=== PATIENT | female | born 1945 | race Hispanic/Latino ===

== ENCOUNTER 2017-12-24 08:38 | Emergency (ER) | payer MEDICARE ==
--- NOTE | 2017-12-24 10:43 | RAD ---
FOUR VIEWS OF THE RIGHT KNEE: DATE: 12/24/17. COMPARISON: None. HISTORY: Total knee arthroplasty in October, pain with weightbearing. FINDINGS: Total knee arthroplasty present with no evidence for hardware failure. The bones appear demineralize d. No displaced fracture or dislocation. No knee joint effusion. IMPRESSION: No acute findings. POS: [facility]
== END 2017-12-24 10:00 | disposition home or self-care (01) ==
LOC: ERS 08:38
DX: S86.911A Strain of unspecified muscle(s) and tendon(s) at lower leg level, right leg, initial encounter (principal); I10 Essential (primary) hypertension; X50.1XXA Overexertion from prolonged static or awkward postures, initial encounter

== ENCOUNTER 2018-10-04 09:35 | Observation (INO) | payer MEDICARE ==
[2018-10-04] MEDS ORDERED: Aspirin Chewable 81 MG TAB ONE (10:04)
[2018-10-04] MEDS ORDERED: Nitroglycerin 2% Ointment 1 INCH/1 GM Packet ONE (10:04)
[2018-10-04 10:35] LABS: #Eosinphils 0.1 thou/uL (0.0-0.7); #Lymphocytes 1.4 thou/uL (1.20-3.40); #Monocytes 0.4 thou/uL (0.11-0.59); #Neutrophils 4.1 thou/uL (1.40-6.50); %Basophils 0.5 % (0.0-1.0); %Eosinophils 2.1 % (0.0-10.0); %Lymphocytes 23.7 % (21.0-51.0); %Monocytes 6.3 % (0.0-10.0); %Neutrophils 67.5 % (42.0-75.0); Hemoglobin 11.9 g/dL (12.0-16.0); Mean Corpuscular HGB CONC 31.4 g/dL (32.0-36.0); Mean Corpuscular Hemoglobin 26.4 pg (27.0-31.0); Mean Corpuscular Volume 83.9 fL (78.0-98.0); Mean Platelet Volume 7.7 fL (7.4-10.4); Platelet Count 203 thou/uL (130-400); RBC Distribution Width 14.6 % (11.5-14.5)
--- NOTE | 2018-10-04 10:36 | RAD ---
CHEST ONE VIEW: Indication: Chest pain. Comparison: 10-06-16 FINDINGS: Lungs are clear. Heart size is normal. No acute osseous abnormality is evident. IMPRESSION: No acute cardiopulmonary abnormality. POS: [facility]
[2018-10-04 11:00] LABS: ALT (SGPT) 14 U/L (8-55); AST (SGOT) 21 U/L (5-34); Alkaline Phosphatase 166 U/L (40-150); Anion Gap 14 mmol/L (10-20); BUN (Urea Nitrogen) 15 mg/dL (9.8-20.1); Bilirubin, Total 0.7 mg/dL (0.2-1.2); Calc. Creatinine Clearance 0 mL/min (70-130); Calcium 9.6 mg/dL (7.8-10.44); Carbon Dioxide 23 mmol/L (23-31); Chloride 106 mmol/L (98-107); Estimated GFR-MDRD 63; Globulin 3.4 g/dL (2.4-3.5); Glucose 108 mg/dL (83-110); Lipase 38 U/L (8-78); Potassium 3.5 mmol/L (3.5-5.1); Protein, Total 7.4 g/dL (6.0-8.3); Sodium 139 mmol/L (136-145)
[2018-10-04] MEDS ORDERED: Ondansetron PF 4 MG/2 ML Vial IVP PRN (13:04)
[2018-10-04] MEDS ORDERED: Ondansetron ODT 4 MG TAB SL PRN (13:04)
[2018-10-04] MEDS ORDERED: Acetaminophen 325 MG TAB PO PRN (13:36)
[2018-10-04] MEDS ORDERED: ALPRAZolam 0.5 MG TAB PO PRN (13:38)
[2018-10-04 14:15] LABS: Troponin I Less than 0.010 ng/mL (< 0.028)
[2018-10-04 14:57] VITALS: BMI 38.9
--- NOTE | 2018-10-04 15:41 | PRG ---
DATE OF SERVICE: 10/04/2018 SUBJECTIVE: The patient referred to the [facility] by [facility] for chest pain. The patient has a vague anterior chest pain radiating to her back. She was examined. Vital signs are stable. Heart regular rate and rhythm. First, second heart sounds clear. No murmur or gallop. Chest is clear to auscultation and percussion. Her cardiac enzymes are unremarkable. DIAGNOSTIC STUDIES: EKG; regular sinus rhythm. No acute ST-T abnormality. PLAN: Cardiac stress test, then review. Job ID: [id number]
[2018-10-04 17:11] LABS: Troponin I Less than 0.010 ng/mL (< 0.028)
--- NOTE | 2018-10-04 17:59 | ULT ---
BILATERAL LOWER EXTREMITY VENOUS ULTRASOUND WITH DOPPLER 10/04/18 HISTORY: Swelling. Elevated D-dimer. COMPARISON: None. TECHNIQUE: Murray scale, color flow, doppler imaging with spectral waveform analysis performed in the left and rig ht lower extremity venous system. FINDINGS: Bilaterally, there is compressibility, presence of flow and augmentation in the common femoral vein, femoral vein, and popliteal vein. There is flow in bilateral saphenous veins, profunda vein and poste rior tibial vein. IMPRESSION: No evidence of thrombus in the left or right lower extremity venous system. POS: [facility]
--- NOTE | 2018-10-04 19:17 | HP ---
PRIMARY CARE PHYSICIAN: Dr. Crocker. CHIEF COMPLAINT: Chest pain. HISTORY OF PRESENT ILLNESS: Ms. Grimm is a pleasant 73-year-old female with past medical history of osteoarthritis and hypertension, who had presented to [facility] with substernal chest pain radiating to her back. This started earlier this morning around 0730 hours. She had reported the pain came on suddenly while she was lying down, and as she stood up, the pain radiated on to her back. She had denied any fever, chills, coughing, shortness of breath, abdominal pain, nausea, or vomiting. She was given aspirin 325 mg oral and 1-inch of nitroglycerin paste, which had resolved her symptoms. Her EKG displayed significant Q-waves in leads III and AVF, she states that she had a heart attack about 15 to 16 years ago; however, denies any history of heart disease. Her serial troponins were found to be less than 0.010; however, her D-dimer was slightly elevated at 0.54. It was determined that the patient be admitted under observation perez for further workup of her chest pain. REVIEW OF SYSTEMS: All other systems reviewed and found to be negative unless mentioned in the HPI. PAST MEDICAL HISTORY: Osteoarthritis, hypertension, previous AK about 15 years ago. PAST SURGICAL HISTORY: Cholecystectomy, section x1, hysterectomy, bilateral knee surgery. PSYCHIATRIC HISTORY: Does report history of anxiety. SOCIAL HISTORY: Denies any alcohol, tobacco, or illicit drug use. FAMILY HISTORY: Denies any family history at this time. KNOWN ALLERGIES: None. CURRENT HOME MEDICATIONS: 1. Losartan 100 mg p.o. daily. 2. Carvedilol 25 mg p.o. b.i.d. 3. Aspirin 81 mg daily. 4. Tramadol 50 mg p.o. q.i.d. p.r.n. pain. 5. Alprazolam 0.5 mg p.o. t.i.d. p.r.n. anxiety. 6. Protonix 40 mg p.o. daily. PHYSICAL EXAMINATION: VITAL SIGNS: Blood pressure 142/66, pulse 64, respirations 20, temperature 97.6 degrees Fahrenheit, O2 saturation 97% on room air. GENERAL: The patient is awake, alert, and oriented x3. No acute distress noted. She is non-Telugu speaking and her son is at bedside translating. HEENT: Atraumatic, normocephalic. Pupils are round and reactive to light. Extraocular muscles intact. Moist mucous membranes noted. Oropharynx is clear without exudates or erythema. NECK: Soft and supple. No JVD. Trachea in midline. CARDIOVASCULAR: Positive S1 and S2. Regular rate and rhythm. No murmurs auscultated. RESPIRATORY: Clear to auscultation bilaterally. No wheezes, rales, or rhonchi. ABDOMEN: Soft, nontender. Bowel sounds present. Obese. MUSCULOSKELETAL: Strength 5+ bilaterally in upper and lower extremities. Moves all extremities equal. Pedal and radial pulses palpable 2+ bilaterally. 1 to 2+ nonpitting edema in bilateral lower extremities with surgical scars noted. NEUROLOGIC: Cranial nerves 2 through 12 grossly intact. No focal deficits noted. Gait not assessed. SKIN: Warm, dry, and intact. No lesions or ulcerations. PSYCHIATRIC: Good mood and affect. LABORATORY DATA: WBC 6.0, RBC 4.50, hemoglobin 11.9, platelet 203. D-dimer 0.54. Sodium 139, potassium 3.5, anion gap 14, BUN 15, creatinine 0.88, estimated GFR 63, glucose 108. Troponin less than 0.010. BNP 60.3. Lipase 38. DIAGNOSTIC IMAGING: Chest x-ray revealed no acute cardiopulmonary abnormality. ASSESSMENT AND PLAN: 1. Chest pain, resolved with nitroglycerin and aspirin, continue nitroglycerin as needed for chest pain. Serial troponins found to be negative and less than 0.010 x3. We will rule out ischemia by obtaining stress test, echocardiogram ordered. 2. Hypertension. Continue on patient's home regimen. 3. History of anxiety. Continue on patient's home regimen with Xanax. 4. Elevated D-dimer. The patient is also having some symptoms of [id number] lower extremity edema with leg pain, we will rule out DVT by obtaining lower extremity venous Doppler bilaterally. 5. Deep venous thrombosis and gastrointestinal prophylaxis. 6. Code status, full code. 7. Surrogate decision maker is the patient's daughter, Kacy Collins. 8. Disposition pending further workup and clinical findings. Job ID: [id number]
[2018-10-04] MEDS: Famotidine 20 MG TAB PO SCH (20:18)
[2018-10-04] MEDS: Carvedilol 25 MG TAB PO SCH (20:18)
[2018-10-04] MEDS: traMADol HCl 50 MG TAB PO PRN (20:18)
[2018-10-05 05:10] LABS: #Eosinphils 0.2 thou/uL (0.0-0.7); #Lymphocytes 1.7 thou/uL (1.20-3.40); #Monocytes 0.7 thou/uL (0.11-0.59); #Neutrophils 3.8 thou/uL (1.40-6.50); %Basophils 0.3 % (0.0-1.0); %Eosinophils 2.6 % (0.0-10.0); %Lymphocytes 26.5 % (21.0-51.0); %Monocytes 10.2 % (0.0-10.0); %Neutrophils 60.3 % (42.0-75.0); Hemoglobin 11.3 g/dL (12.0-16.0); Mean Corpuscular HGB CONC 31.6 g/dL (32.0-36.0); Mean Corpuscular Hemoglobin 27.4 pg (27.0-31.0); Mean Corpuscular Volume 86.7 fL (78.0-98.0); Mean Platelet Volume 7.9 fL (7.4-10.4); Platelet Count 185 thou/uL (130-400); RBC Distribution Width 14.9 % (11.5-14.5); Red Blood Cell (RBC) Count 4.11 mill/uL (4.20-5.40); White Blood Cell (WBC) Count 6.4 thou/uL (4.8-10.8)
[2018-10-05 05:31] LABS: Anion Gap 13 mmol/L (10-20); BUN (Urea Nitrogen) 20 mg/dL (9.8-20.1); Calc. Creatinine Clearance 94 mL/min (70-130); Calcium 9.3 mg/dL (7.8-10.44); Carbon Dioxide 22 mmol/L (23-31); Chloride 109 mmol/L (98-107); Estimated GFR-MDRD 66; Glucose 102 mg/dL (83-110); Potassium 3.7 mmol/L (3.5-5.1); Sodium 140 mmol/L (136-145)
[2018-10-05] MEDS ORDERED: ADENOSINE 60 MG/20 ML VIAL ONE (10:07)
[2018-10-05] MEDS: Famotidine 20 MG TAB PO SCH ×2 (11:20→20:27)
[2018-10-05] MEDS: Carvedilol 25 MG TAB PO SCH ×2 (11:20→20:27)
[2018-10-05] MEDS: Aspirin Chewable 81 MG TAB PO SCH (11:21)
[2018-10-05] MEDS: Losartan 25 MG TAB PO SCH (11:21)
[2018-10-05] MEDS: Enoxaparin Sodium 40 MG/0.4 ML SYRINGE SC SCH (15:20)
--- NOTE | 2018-10-05 16:36 | PDOC.PN ---
- Subjective Encounter Start Date: 10/05/18 Encounter Start Time: 16:31 Patient lying in bed, she reports feeling better. Denies chest pain, shortness of breath or abdominal pain. She underwent stress portion of stress test and will undergo resting tomorrow. - Objective Resuscitation Status - Order Detail: 10/04/18 13:36 Resuscitation Status Routine Co-Sign Provider: Resuscitation Status: FULL: Full Resuscitation MAR Reviewed: Yes Vital Signs & Weight: Vital Signs (12 hours) Temp Pulse Resp BP Pulse Ox 10/05/18 15:00 97.6 F 65 16 114/60 96 10/05/18 11:33 97.8 F 65 18 141/63 H 97 10/05/18 07:44 97.3 F L 66 18 140/62 94 L 10/05/18 04:33 98.2 F 68 18 111/54 L 95 Weight Weight 219 lb 9.6 oz I&O: 10/04/18 10/05/18 10/06/18 06:59 06:59 06:59 Intake Total 1040 Balance 1040 Result Diagrams: 10/05/18 04:36 10/05/18 04:36 Radiology Reviewed by me: Yes Phys Exam - Physical Examination Constitutional: NAD HEENT: PERRLA, moist MMs, oral pharynx no lesions Neck: no nodes, supple Respiratory: no wheezing, no rales Cardiovascular: RRR, no significant murmur Gastrointestinal: soft, positive bowel sounds Musculoskeletal: no edema, pulses present Neurological: non-focal, moves all 4 limbs Lymphatic: no nodes Psychiatric: normal affect, A&O x 3 Skin: no rash, cap refill <2 seconds Dx/Plan (1) Chest pain Code(s): R07.9 - CHEST PAIN, UNSPECIFIED Status: Acute (2) Hypertension Code(s): I10 - ESSENTIAL (PRIMARY) HYPERTENSION Status: Acute (3) Anxiety Code(s): F41.9 - ANXIETY DISORDER, UNSPECIFIED Status: Acute - Plan cont current plan of care, plan discussed w/ family, DVT proph w/lovenox * Continue medical management * Home medications * Await echo and stress test, will have resting portion of stress test in the am * If workup negative will discharge home tomorrow
[2018-10-05] MEDS: traMADol HCl 50 MG TAB PO PRN (21:54)
[2018-10-06] MEDS: Enoxaparin Sodium 40 MG/0.4 ML SYRINGE SC SCH (07:50)
[2018-10-06] MEDS: Famotidine 20 MG TAB PO SCH (07:50)
[2018-10-06] MEDS: Aspirin Chewable 81 MG TAB PO SCH (07:51)
[2018-10-06] MEDS: Losartan 25 MG TAB PO SCH (07:51)
[2018-10-06] MEDS: Carvedilol 25 MG TAB PO SCH (07:51)
[2018-10-06] MEDS: traMADol HCl 50 MG TAB PO PRN (11:07)
--- NOTE | 2018-10-06 11:58 | NM ---
NUCLEAR MEDICINE CARDIAC MYOCARDIAL PERFUSION SPECT EJECTION FRACTION STUDY WALL MOTION CINE: DATE: 10/06/2018. HISTORY: A 73-year-old female with a history of coronary artery disease, hypertension, and prior myocardial in farction, presents with chest pain. TECHNIQUE: Number of days: 2. Rest study: Tc99m sestamibi (Cardiolite) dose: 27.0 mCi. Pharmacologic stress: adenosine dose: 55.7 mg. Stress study: Tc99m sestamibi (Cardiolite) dose: 27.6 mCi. FINDINGS: CARDIAC (MYOCARDIAL PERFUSION) SPECT There is a questionable finding of a small reversible defect at the anteroseptal corner of the cardia c apex. There are no other potentially reversible perfusion defects. No chamber dilation of left ve ntricle. EJECTION FRACTION STUDY EF = 71% WALL MOTION CINE Normal. IMPRESSION: Questionable small focus of reversible ischemia at the cardiac apex. CODE T JN R POS: [facility]
[2018-10-06 12:20] VITALS: BP 137/61; TEMP 97.9
--- NOTE | 2018-10-06 15:51 | CON ---
DATE OF CONSULTATION: REASON FOR CONSULTATION: Chest pain. HISTORY OF PRESENT ILLNESS: Ms. Grimm is a very pleasant 73-year-old woman with a past history of hypertension and hyperlipidemia, who recently presented with back pain. There was radiation to the chest. No other associated . She has no previous history of underlying coronary artery disease. She underwent a noninvasive stress study that was found have a questionable area of ischemia at the apex only. LVEF normal. PAST MEDICAL HISTORY: As above including osteoarthritis, cholecystectomy, , hysterectomy, and knee surgery. SOCIAL HISTORY: No current tobacco or alcohol use. FAMILY HISTORY: Negative for CAD. ALLERGIES: NONE. HOME MEDICATIONS: Include; 1. Losartan. 2. Carvedilol. 3. Aspirin. 4. Tramadol. 5. Alprazolam. 6. Protonix. REVIEW OF SYSTEMS: A 10-point review of systems is reviewed as above, otherwise negative. PHYSICAL EXAMINATION: GENERAL: Patient is a pleasant female, who is in no acute distress. The patient appears their stated age. VITAL SIGNS: Blood pressure 137/61, pulse 69, and temperature 97.9. NEUROLOGIC: The patient is alert and oriented x3 with no focal neurologic deficits. HEENT: Sclerae without icterus. Mouth has moist mucous membranes with normal pallor. NECK: No JVD. Carotid upstroke brisk. No bruits bilaterally. LUNGS: Clear to auscultation with unlabored respirations. BACK: No scoliosis or kyphosis. CARDIAC: Regular rate and rhythm with normal S1 and S2. No S3 or S4 noted. No significant rubs, murmurs, thrills, or gallops noted throughout the precordium. PMI is not displaced. There is no parasternal heave. ABDOMEN: Soft, nontender, nondistended. No peritoneal signs present. No hepatosplenomegaly. No abnormal striae. EXTREMITIES: 2+ femoral and 2+ dorsalis pedis pulses. No cyanosis, clubbing, or edema. SKIN: No gross abnormalities. PERTINENT LABORATORY DATA: Troponin negative. EKG; normal sinus rhythm, normal EKG. Stress rest, myocardial perfusion study as described above. IMPRESSION: Atypical chest pain. RECOMMENDATIONS: Ms. Grimm' HeartScore is less than 3. Her stress study showed a questionable area of ischemia and likely artifact. At this point, it would be okay from my standpoint to discharge home with close outpatient followup. Job ID: [id number]
== END 2018-10-06 14:39 | disposition home or self-care (01) ==
LOC: ERS 09:35 → 2SW 12:52
PROVIDERS: ADMIT Internal Medicine; ATTEND Internal Medicine
DX: R07.89 Other chest pain (principal); I10 Essential (primary) hypertension; I25.2 Old myocardial infarction; F41.9 Anxiety disorder, unspecified; M19.90 Unspecified osteoarthritis, unspecified site; Z90.49 Acquired absence of other specified parts of digestive tract; Z90.710 Acquired absence of both cervix and uterus; Z79.82 Long term (current) use of aspirin; Z79.899 Other long term (current) drug therapy; Z98.890 Other specified postprocedural states
CPT/HCPCS: 71045; 78452; 80048; 80053; 83690; 83880; 84484 ×2; 85025 ×2; 85379; 93005; 93017; 93306; 93970; 96372; 97139 ×2; 99285; A9500; G0378 ×4; 36415; J0153; J1650

== ENCOUNTER 2020-06-12 14:29 | Emergency (ER) | payer MEDICARE ==
[2020-06-12 22:19] LABS: SARS-CoV-2 MS2 Positive; SARS-CoV-2 N Gene Negative; SARS-CoV-2 S Gene Negative; SARS-CoV-2 by NAA Not Detected (NotDetected); SARS-CoV-2 orf1ab Negative
== END 2020-06-12 14:47 | disposition home or self-care (01) ==
LOC: ERS 14:29
DX: Z20.828 Contact with and (suspected) exposure to other viral communicable diseases (principal)
CPT/HCPCS: 99283; U0003; 87635

== ENCOUNTER 2021-06-09 17:46 | Emergency (ER) | payer MEDICARE ==
[2021-06-09] MEDS ORDERED: HYDROcodone/Acetaminophen 5/325 mg Tablet ONE (19:02)
== END 2021-06-09 19:15 | disposition home or self-care (01) ==
LOC: ERS 17:46
DX: K12.0 Recurrent oral aphthae (principal); I10 Essential (primary) hypertension; Z79.82 Long term (current) use of aspirin; Z79.899 Other long term (current) drug therapy
CPT/HCPCS: 99282

== ENCOUNTER 2022-10-31 18:05 | Emergency (ER) | payer MEDICARE ==
[2022-10-31 19:12] LABS: #Eosinphils 0.2 thou/uL (0.0-0.7); #Lymphocytes 2.1 thou/uL (1.20-3.40); #Monocytes 0.6 thou/uL (0.11-0.59); #Neutrophils 5.3 thou/uL (1.40-6.50); %Basophils 0.5 % (0.0-1.0); %Eosinophils 2.7 % (0.0-10.0); %Lymphocytes 25.1 % (21.0-51.0); %Monocytes 7.5 % (0.0-10.0); %Neutrophils 64.2 % (42.0-75.0); Mean Corpuscular HGB CONC 31.6 g/dL (32.0-36.0); Mean Corpuscular Hemoglobin 25.3 pg (27.0-31.0); Mean Corpuscular Volume 80.1 fl (78.0-98.0); Mean Platelet Volume 8.1 fL (7.4-10.4); Platelet Count 249 10x3/uL (130-400); RBC Distribution Width 15.5 % (11.5-14.5); Red Blood Cell (RBC) Count 4.35 mill/uL (4.20-5.40); White Blood Cell (WBC) Count 8.2 10x3/uL (4.8-10.8)
[2022-10-31 19:32] LABS: ALT (SGPT) 15 U/L (8-55); AST (SGOT) 23 U/L (5-34); Albumin 3.9 g/dL (3.4-4.8); Alkaline Phosphatase 119 U/L (40-110); Anion Gap 10 mmol/L (10-20); BUN (Urea Nitrogen) 26 mg/dL (9.8-20.1); Bilirubin, Total 0.3 mg/dL (0.2-1.2); Calc. Creatinine Clearance 0 mL/min (70-130); Calcium 9.5 mg/dL (7.8-10.44); Carbon Dioxide 27 mmol/L (23-31); Chloride 106 mmol/L (98-107); Estimated GFR 50; Globulin 3.7 g/dL (2.4-3.5); Glucose 109 mg/dL (83-110); Potassium 4.2 mmol/L (3.5-5.1); Protein, Total 7.6 g/dL (5.8-8.1); Sodium 139 mmol/L (136-145)
[2022-10-31 20:15] LABS: Bilirubin Negative (Negative); Blood, Urine 1+ (Negative); Clarity Clear (Clear); Glucose, Urine (Dipstick) Normal (Negative); Ketone, Urine Negative (Negative); Leukocyte 75 Leu/uL (Negative); Nitrite Negative (Negative); Protein, Urine (Dipstick) Negative (Neg-Trace); Specific Gravity, Urine 1.009 (1.002-1.036); Urobilinogen Normal mg/dL (Less than 2); WBC/HPF 0-3 HPF (0-3)
[2022-10-31 20:16] LABS: Bacteria/HPF 1+ HPF (None Seen)
== END 2022-10-31 22:56 | disposition home or self-care (01) ==
LOC: ERS 18:05
DX: R53.1 Weakness (principal); I10 Essential (primary) hypertension; Z79.82 Long term (current) use of aspirin
CPT/HCPCS: 36415; 70450; 80053; 81003; 81015; 83605; 83880; 84484; 85025; 87086; 93005

== ENCOUNTER 2023-02-03 17:41 | Emergency (ER) | payer MEDICARE ==
[2023-02-03] MEDS ORDERED: Ketorolac Tromethamine 30 MG/ML VIAL ONE (18:06)
[2023-02-03] MEDS ORDERED: Cyclobenzaprine 10 MG TAB ONE (18:14)
[2023-02-03] MEDS ORDERED: Morphine 4 MG/ML VIAL ONE (19:11)
[2023-02-03 19:18] LABS: #Eosinphils 0.2 thou/uL (0.0-0.7); #Monocytes 0.5 thou/uL (0.11-0.59); #Neutrophils 4.2 thou/uL (1.40-6.50); %Basophils 0.3 % (0.0-1.0); %Eosinophils 2.3 % (0.0-10.0); %Lymphocytes 24.6 % (21.0-51.0); %Monocytes 8.3 % (0.0-10.0); Mean Corpuscular HGB CONC 30.8 g/dL (32.0-36.0); Mean Corpuscular Hemoglobin 24.4 pg (27.0-31.0); Mean Corpuscular Volume 79.5 fl (78.0-98.0); Mean Platelet Volume 9.5 fL (7.4-10.4); Platelet Count 188 10x3/uL (130-400); RBC Distribution Width 16.5 % (11.5-14.5); Red Blood Cell (RBC) Count 4.09 mill/uL (4.20-5.40); White Blood Cell (WBC) Count 6.5 10x3/uL (4.8-10.8)
[2023-02-03 19:44] LABS: Anion Gap 12 mmol/L (10-20); BUN (Urea Nitrogen) 21 mg/dL (9.8-20.1); Calc. Creatinine Clearance 0 mL/min (70-130); Carbon Dioxide 24 mmol/L (23-31); Chloride 107 mmol/L (98-107); Potassium 3.6 mmol/L (3.5-5.1); Sodium 139 mmol/L (136-145)
[2023-02-03 19:45] LABS: ALT (SGPT) 10 U/L (8-55); AST (SGOT) 15 U/L (5-34); Albumin 3.7 g/dL (3.4-4.8); Alkaline Phosphatase 106 U/L (40-110); Bilirubin, Total 0.5 mg/dL (0.2-1.2); Estimated GFR 49; Globulin 3.3 g/dL (2.4-3.5); Glucose 124 mg/dL (83-110)
== END 2023-02-03 20:04 | disposition home or self-care (01) ==
LOC: ERS 17:41
DX: M54.12 Radiculopathy, cervical region (principal); I12.9 Hypertensive chronic kidney disease with stage 1 through stage 4 chronic kidney disease, or unspecified chronic kidney disease; N18.2 Chronic kidney disease, stage 2 (mild); D64.9 Anemia, unspecified; Z79.82 Long term (current) use of aspirin; Z79.899 Other long term (current) drug therapy
CPT/HCPCS: 36415; 71045; 80053; 84484; 85025; 93005; 96372; J1885; J2270

== ENCOUNTER 2024-01-04 12:47 | Outpatient (CLI) | payer MEDICARE | END 2024-01-04 12:48 | disposition home or self-care (01) | LOC: SCSMRI 12:47 | PROVIDERS: ATTEND Family Medicine Sports Medicine | DX: M47.26 Other spondylosis with radiculopathy, lumbar region (principal); M47.815 Spondylosis without myelopathy or radiculopathy, thoracolumbar region; M47.817 Spondylosis without myelopathy or radiculopathy, lumbosacral region; M41.9 Scoliosis, unspecified | CPT/HCPCS: 72148 ==

== ENCOUNTER 2024-01-28 17:03 | Emergency (ER) | payer MEDICARE | END 2024-01-28 17:49 | disposition home or self-care (01) | LOC: ERS 17:03 | DX: S80.02XA Contusion of left knee, initial encounter (principal); S80.01XA Contusion of right knee, initial encounter; X50.1XXA Overexertion from prolonged static or awkward postures, initial encounter ==